=== PATIENT | male | born 1980 | race Caucasian/White ===

== ENCOUNTER 2024-05-01 19:59 | Inpatient (IN) | payer OTHER, SELFPAY ==
[2024-05-01 16:32] VITALS: BP 136/88
[2024-05-01 17:08] LABS: % Basophils 0.3 % (0-2); % Eosinophils 1.1 % (0-6); % Immature Granulocytes 0.4 % (0-0.5); % Lymphocytes 25.2 % (20.5-51.1); % Monocytes 9.8 % (1.7-9.3); % Neutrophils 63.2 % (42.2-75.2); Absolute Eosinophils 0.1 10^3/uL (0-0.7); Absolute Lymphocytes 1.9 10^3/uL (1.2-3.4); Absolute Monocytes 0.7 10^3/uL (0.1-0.6); Absolute Neutrophils 4.7 10^3/uL (1.4-6.5); Hematocrit 41.6 % (39.0-52.0); Hemoglobin 14.6 g/dL (13.0-18.0); INR 1.07; Mean Corp Hgb Conc. 35.1 g/dL (33.0-37.0); Mean Corpuscular Hgb 32.7 pg (27.0-31.0); Mean Corpuscular Volume 93.1 fL (80.0-94.0); Mean Platelet Volume 9.9 fL (7.4-10.4); Nucleated Red Blood Cells % 0 % (-); PT 13.7 Sec (11.4-14.6); Platelet Count 217 10^3/uL (130-400); Red Blood Cell Count 4.47 10^6/uL (4.70-6.10); Red Cell Dist. Width 12.1 % (11.5-14.5); White Blood Cell Count 7.4 10^3/uL (4.8-10.8)
[2024-05-01 17:09] LABS: APTT 26.2 Sec (23.4-35.0)
[2024-05-01 17:27] LABS: ALT (SGPT) 19 U/L (0-50); AST (SGOT) 23 U/L (17-59); Albumin 4.3 g/dl (3.5-5.0); Alkaline Phosphatase 68 U/L (38-126); Blood Urea Nitrogen 16 mg/dl (9-20); Calcium 9.5 mg/dl (8.4-10.2); Carbon Dioxide 25 mmol/L (22-30); Chloride 105 mmol/L (98-107); Glucose 98 mg/dl (70-99); Potassium 4.4 mmol/L (3.5-5.1); Sodium 137 mmol/L (135-145); Total Bilirubin 0.8 mg/dl (0.2-1.3); eGFR > 60.00
--- NOTE | 2024-05-01 18:51 | ED.GENMED ---
History of Present Illness
General
Chief Complaint: Rectal Bleeding
Time Seen by Provider: 05/01/24 18:26
History of Present Illness
History of Present Illness:
43-year-old male with history of Crohn's disease presents to the emergency department for evaluation of rectal bleeding. He underwent a routine colonoscopy at [place] [facility] this morning, per procedure notes on retroflexion there was an iatrogenic mucosal
tear the distal rectum. This was observed and bleeding ceased prior to the end of the procedure. Shortly after returning home the patient began having blood in his underwear and multiple large-volume bloody bowel movements. He reports mild lower
abdominal discomfort but no severe pain. No fevers or chills. He is not on anticoagulants or antiplatelets
Past History
Past History
ED Past Medical History: Other (Colitis,Crohn's with abscess and fistula)
ED Past Surgical History: None; Negative Cardiac
Social History
Tobacco: Former smoker
Alcohol: Occasional
Drug: None
Personal:
Living: with family
Employment: Employed
Family History
Family History: Other
Review of Systems
Review of Systems
Allergies reviewed?: Yes
All Other Systems: ROS reviewed and negative except as documented in HPI and ROS
Phy Exam
Physical Exam
Physical Exam:
GEN: Well appearing, NAD, WDWN
HEENT: Oral mucosa moist, no scleral icterus
Cardiac: Regular rate
Lung: No respiratory distress, no tachypnea
Rectal: No gross blood present on rectal exam
MSK: No gross deformity or injuries
Skin: Good color, no pallor or jaundice, no rashes
Neuro: AO x3, moves all extremities freely
Psych: Calm, cooperative
Course
Orders/Labs/Results
Orders:
Orders
05/01/24 16:49
Complete Blood Count/With Diff Urgent
Comprehensive Metabolic Panel Urgent
PT/INR [Prothrombin Time] Urgent
PTT Urgent
05/01/24 19:32
Admit/Transfer Patient As Directed
Co-Sign Provider:
Level of Care: Inpatient admission
Assign to:: Telemetry
Physician / Group: [email or web address]
Diagnosis: Post colonoscopy rectal bleed
Reason for Telemetry: Other
Other Reason for Telemetry: Post colonoscopy rectal bleed
Date to Stop Telemetry: 05/03/24
Time to Stop Telemetry: 11:00
Reason for Hospitalization: Post colonoscopy rectal bleed
Expected length of stay greater than two midnights?: Yes
ELOS- Estimated Length of Stay in days: 2
I certify the patient meets the requirements for IP care: Yes
05/01/24 19:33
Code Status As Directed
Resuscitation Status: Full Code
05/01/24 19:41
Ondansetron Injectable [Zofran] 4 mg IV NOW STA
05/01/24 19:42
HYDROmorphone [Dilaudid] 0.5 mg IV NOW STA
05/01/24 20:44
0.9% Sodium Chloride 1000 ml [Nss] 1,000 ml IV 80 mls/hr
05/01/24 20:44
Activity As Directed
Activity Level: With Assistance
INT (Intravenous Needle Therapy) As Directed
Comment: Place 2 IV catheters of the largest bore possible until stable
Intake/ Output As Directed
Frequency: Per unit guidelines
Orthostatic Vital Signs As Directed
Orthostatic VS Frequency: Now
Comment: then every four hours for twenty-four hours
Pneumatic Compression Sleeves As Directed
Type: Knee high
Vital Signs As Directed
Frequency: Per unit guidelines
DX Deep Vein Thrombosis Video Routine
05/01/24 20:58
H&H Q8H
05/02/24 Breakfast
NPO
Allow oral meds: Yes
Allow clear liquids: Sips of Clears
NPO with Ice Chips: Yes
Basic Metabolic Panel IN AM
05/02/24 08:00
Pantoprazole [Protonix IV] 40 mg IV DAILY
05/03/24 11:00
DC Protocol for Telemetry ONCE
Abnormal Lab Results
05/01/24
16:49
RBC 4.47 L 10^6/uL
(4.70-6.10)
MCH 32.7 H pg
(27.0-31.0)
Absolute Monos (auto) 0.7 H 10^3/uL
(0.1-0.6)
Monocytes % 9.8 H %
(1.7-9.3)
05/01/24 16:49
05/01/24 16:49
Vital Signs
Initial and Last Documented VS:
Initial Vital Signs
Temp Pulse Resp BP Pulse Ox
98.9 F 63 18 136/88 99
05/01/24 16:32 05/01/24 16:32 05/01/24 16:32 05/01/24 16:32 05/01/24 16:32
Last Documented Vital Signs
Temp Pulse Resp BP Pulse Ox
98.3 F 49 18 123/76 100
05/01/24 21:00 05/01/24 21:00 05/01/24 21:00 05/01/24 21:00 05/01/24 21:00
MDM/Problems Addressed
MDM/Problems Addressed:
After discussion with patient is clinically stable with reassuring hemoglobin, plan to admit for observation, further bleeding is identified may require GI intervention. GI on-call physician was made aware as well
*Critical Care Note
Total Time (30-74mins, 75-104mins- exclusive of procedures): Not Applicable
Update Note
Update Note:
Discussed the case with Dr. Miner at the [facility]. She advises overnight observation and hemoglobin trending as any further bleeding may warrant need for clipping of the mucosal injury. Her cell phone is [phone] and can be
reached for any further questions
ED Attending Note
-
Portions of this chart may have been created with voice recognition software.� Occasional wrong word or��sound alike� substitutions may have occurred due to the inherent limitations of voice recognition software.
Discharge Plan
Departure
Patient Disposition: Admit
Date of Disposition: 05/01/24
Time of Disposition: 18:58
Presentation/result/management discussed w/ accepting MD/DO: Hospitalist
Discharge Problem:
Rectal bleeding, Rectal injury
Interventions
Interventions:
*Risk Screen - Suicide Last Done: 05/01/24 19:22
*General Assessment Last Done: 05/01/24 19:22
*Neglect/Abuse Screening Last Done: 05/01/24 19:22
ED- Fall Risk Assessment Last Done: 05/01/24 19:22
*ED COVID-19 Vaccine History Last Done: 05/01/24 20:47
*Nursing Disposition Last Done: 05/01/24 20:47
SO-Tkpjrw-Xnvsfsvbqd Assessment Last Done: 05/01/24 19:22
ED- Cardiac Assessment Last Done: 05/01/24 19:22
ED- Pulmonary Assessment Last Done: 05/01/24 19:22
Discharge Date and Time
Discharge Date/Time: 05/01/24 20:47
[2024-05-01 19:11] VITALS: BP 133/94
[2024-05-01 19:22] VITALS: BMI 24.8
--- NOTE | 2024-05-01 19:29 | HPS.HSE ---
Family Physician
-
Family Physician: NOT KNOW UNKNOWN - PT DOES
Chief Complaint
-
rectal bleed
History of Present Illness
HPI
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
- s/p routine C scope complicated by iatrogenic mucosal tear the distal rectum at [place] this morning pr procedure note
- It was observed and bleeding ceased prior to the end of the procedure then DC'd home
- At home noted blood in his underwear and multiple large-volume bloody bowel movements.
- mild lower abdominal discomfort but no severe pain
- No fevers or chills. Nl WCC
- Not on anticoagulants or antiplatelets
- Hgb 14.6
- Hemodynamically stable
At ER
Rectal by ER AP : No gross blood present on rectal exam
Medical History
Past Medical History
Past Medical History: Reports Other (HX Crohns dx complicated by abscess, fisulous dz, colitis and Crohn's proctosigmoiditis.,)
Past Surgical History: Reports None
Social History
Tobacco: Non-smoker
Alcohol: None
Drug: None
Family History
Family History: Not pertinent
Allergies / Home Medications
Allergies reflects when Allergies were last updated in [employer].
Home Medications with original date entered in [employer]
Allergy/Medication List:
Allergies
Allergy/AdvReac Type Severity Reaction Status Date / Time
No Known Allergies Allergy Verified 05/01/24 16:33
Home Medications
ascorbic acid (vitamin C) 500 mg tablet (Vitamin C) 500 mg PO DAILY 05/01/24
cholecalciferol (vitamin D3) 25 mcg (1,000 unit) tablet 25 mcg PO DAILY 05/01/24
infliximab 100 mg intravenous solution (Remicade) 0 mg IV Q6W 05/01/24
tadalafil 20 mg tablet 20 mg PO DAILYPRN PRN ed 05/01/24
zinc sulfate 50 mg zinc (220 mg) tablet 50 mg PO DAILY 05/01/24
Review of Systems
-
Constitutional: Reports No Symptoms
EENT: Reports No Symptoms
Respiratory: Reports No Symptoms
Cardiac: Reports No Symptoms
Abdomen/GI: Reports See HPI and Bloody Stools
: Reports No Symptoms
Musculoskeletal: Reports No Symptoms
Skin: Reports No Symptoms
Neurological: Reports No Symptoms
Endocrine: Reports No Symptoms
Hematologic/Lymphatic: Reports No Symptoms
Psych: Reports No Symptoms
Physical Exam
Vital Signs
Vital Signs
Temp Pulse Resp BP Pulse Ox
98.9 F 63 18 133/94 100
05/01/24 16:32 05/01/24 16:32 05/01/24 16:32 05/01/24 19:11 05/01/24 19:15
Physical Exam
General: Well Developed, Well Nourished, No Apparent Distress, Comfortable and Conversant; No Appears in Distress
HEENT: NormoCephalic, Moist mucous membranes and Atraumatic
Respiratory: Clear
Cardiac: S1/S2 and Regular Rhythm; No Murmur or Rub
GI: Soft, Non Tender, Non Distended and Normal Bowel Sounds; No Organomegaly
Rectal: Deferred by Provider
Musculoskeletal: No Clubbing, No Cyanosis and No Edema
Skin: No Rash
Neuro: AO x 3 and Nonfocal/grossly intact
Psych: Calm and Intact Judgment/Insight
Laboratory Results
-
05/01/24 16:49
05/01/24 16:49
Laboratory Results
PT 13.7 Sec (11.4-14.6) 05/01/24 16:49
INR 1.07 05/01/24 16:49
APTT 26.2 Sec (23.4-35.0) 05/01/24 16:49
Total Bilirubin 0.8 mg/dl (0.2-1.3) 05/01/24 16:49
AST 23 U/L (17-59) 05/01/24 16:49
ALT 19 U/L (0-50) 05/01/24 16:49
Alkaline Phosphatase 68 U/L (38-126) 05/01/24 16:49
Data Reviewed
-
Lab Data: Labs Reviewed by me
Old Records: Reviewed
Impression/Plan
-
Reviewed VS: stable , unremarkable
Vital Signs
Temp Pulse Resp BP Pulse Ox
98.9 F 63 18 133/94 100
05/01/24 16:32 05/01/24 16:32 05/01/24 16:32 05/01/24 19:11 05/01/24 19:15
Data
nl WCC
Hgb 14.6
Unremarkable CMP
Last hospitalist admission: 01/25/20 - 01/29/20
P DXS
1. Rectal fistula.
2. Procto-sigmoid colitis.
ASSESSMENT & PLAN
Post colonoscopy rectal bleed
05/01/24 S/p routine C scope complicated by iatrogenic mucosal tear the distal rectum at [place] this morning per procedure note
HX Crohn dz complicated by abscess, fistulous dz, colitis and Crohn's proctosigmoiditis., currently on Infliximab Q6W
- not on AC or APL
- Afebrile and Nl WCC
- Hemodynamically stable
- T & S blood consented by me and scanned ( Of note; Prefer Blood from and daughter if Blood Tx is warranted)
- Clear and ADAT
- Trend H/H q8h
- IVF
- Avoid NSAIDs and ASA for now
- GI consult
HX negative T. test, negative hepatitis panel and hepatitis B virus.
DVT Px: SCD
Code: Full
IP TLM
[2024-05-01] MEDS: DILAUDID 0.5 MG IV ×2 (19:43→23:02)
[2024-05-01] MEDS: ZOFRAN 4 MG IV (19:43)
[2024-05-01 21:00] VITALS: BP 123/76; BMI 24.3
[2024-05-01 21:15] LABS: Hematocrit 36.9 % (39.0-52.0); Hemoglobin 13.2 g/dL (13.0-18.0)
[2024-05-01] MEDS: NSS 1000 IV (21:55)
--- NOTE | 2024-05-01 22:38 | PTCARENOTE ---
Patient arrived via stretcher around 2100 with diagnosis of post colonoscopy rectal bleed. Patient AAOX3. Pleasant and cooperative with care. Patient continues to have moderate amount of rectal bleeding. H&H stable. Patient denies dizziness.
Oriented to unit. Call gray within reach.
[2024-05-01 23:15] VITALS: BP 105/72; BP 122/79; BP 131/83; PULSE 54; PULSE 57; PULSE 64
[2024-05-02 03:15] VITALS: BP 108/66; BP 111/70; BP 112/71; PULSE 46; PULSE 50; PULSE 52
[2024-05-02] MEDS: DILAUDID 0.5 MG IV ×3 (03:15→10:39)
[2024-05-02 07:15] VITALS: BP 107/62
[2024-05-02] MEDS: PROTONIX IV 40 MG IV (07:33)
[2024-05-02] MEDS: NSS (PRESERVATIVE FREE) 10 ML IV (07:33)
[2024-05-02 08:26] LABS: Blood Urea Nitrogen 17 mg/dl (9-20); Calcium 8.8 mg/dl (8.4-10.2); Carbon Dioxide 27 mmol/L (22-30); Chloride 106 mmol/L (98-107); Estimated Creatinine Clearance 116 ml/min; Glucose 85 mg/dl (70-99); Potassium 4.1 mmol/L (3.5-5.1); Sodium 137 mmol/L (135-145); eGFR > 60.00
[2024-05-02 08:28] LABS: Hematocrit 35.1 % (39.0-52.0); Hemoglobin 12.3 g/dL (13.0-18.0)
--- NOTE | 2024-05-02 10:51 | CON.GI ---
Addendum entered and electronically signed by Jm Acuna MD 05/02/24 17:00:
I saw and examined the patient.
The [facility] CONSULTANT or PA's note was reviewed and I agree with the note.
Comment: 43yo male with hx Crohn's disease who had colonoscopy for surveillance yesterday at [facility]. Reported rectal tear in area of scar tissue from prior abscess that bled but was self limited. Reported bleeding after he went home. Since d/c
bleeding subsided and Hgb dropped slightly from 14 to 12.
REC:
Bleeding has resolved
OK for d/c home
Original Note:
Consultation
-
Date/Time Consultation Requested: 05/02/24729
Date/Time Consultation Performed: 05/02/24 1050
Requesting Provider: Gurpreet Fagan MD
Performing Provider: BLANCA Finn, Jm Acuna MD
Reason for Consultation: rectal bleeding
Medical History
Chief Complaint / HPI
Chief Complaint: rectal bleeding
History of Present Illness:
Pt is a 43yo with hx crohn's disease with prior failed mesalamine and Humira to 2014. He was off treatment then seen in 2019 with concern for abscess/fistula and moderate to severe colitis. He is currently on Infliximab Q6 week and went for
colonoscopy 05/01 at [facility] with [address]. Low noted rectal bleeding on return home. Per admission note and pt recall pt noted with iatrogenic mucosal tear in distal rectum in area of scar tissue from prior abscess. Pt state while at home he was noted
with multiple episodes of worsening bleeding and sense of blood dripping from rectum with blood on underwear and eventual presented for eval. He continued with bleeding til about 3 am then improved since that time. He also had some bloating feeling
in abdomen. Hbg 14.6 on admission with drop to 12.3 after admission. Pt reports stable crohn's symptoms since starting Infliximab in 2019.
Pt reports typical bowel pattern in stool in AM initially formed then loose. He denies any bleeding prior to procedure. He denies dysphagia, GERD, nausea, vomiting, or black stools.
Past Medical History
Past Medical History: Other (crohns disease proctosigmoiditis with hx complicated abscess/fistula 2019)
Social History
Tobacco: Smoker (occasional )
Alcohol: Occasional
Drug: Marijuana (occasional pill at night )
Personal:
Living: With Family
Employment: Employed
Family History
Family History: Other (father with IBS)
Allergies / Home Medications
Allergy/AdvReac Type Severity Reaction Status Date / Time
No Known Allergies Allergy Verified 05/01/24 16:33
�Medication �Instructions �Recorded
ascorbic acid (vitamin C) 500 mg 500 mg PO DAILY Supplement 05/01/24
tablet (Vitamin C)
cholecalciferol (vitamin D3) 25 25 mcg PO DAILY Supplement 05/01/24
mcg (1,000 unit) tablet
infliximab 100 mg intravenous 0 mg IV Q6W Autoimmune Disorder 05/01/24
solution (Remicade)
tadalafil 20 mg tablet 20 mg PO DAILYPRN PRN ed 05/01/24
zinc sulfate 50 mg zinc (220 mg) 50 mg PO DAILY Supplement 05/01/24
tablet
Review of Systems
-
History Source: Patient
Constitutional: Reports No Symptoms
EENT: Reports No Symptoms
Respiratory: Reports No Symptoms
Cardiac: Reports No Symptoms
Abdomen/GI: Reports Abdominal Pain and Bloody Stools
: Reports No Symptoms
Musculoskeletal: Reports No Symptoms
Skin: Reports No Symptoms
Neurological: Reports No Symptoms
Endocrine: Reports No Symptoms
Hematologic/Lymphatic: Reports Bleeding
Vital Signs
Temp Pulse Resp BP Pulse Ox
98.0 F 46 15 107/62 99
05/02/24 07:15 05/02/24 07:15 05/02/24 07:15 05/02/24 07:15 05/02/24 07:15
Physical Exam
Exam
General: Well Developed, Well Nourished and No Apparent Distress
HEENT: Normocephalic and Anicteric
Respiratory: Clear
Cardiac: Regular Rhythm
GI: Soft, Non Tender and Non Distended
Rectal: Deferred by Provider
Musculoskeletal: No Clubbing and No Cyanosis
Skin: Warm and Dry
Neuro: Awake, Alert and AO x 3
Psych: Calm
Results
WBC 7.4 10^3/uL (4.8-10.8) 05/01/24 16:49
Hgb 12.3 g/dL (13.0-18.0) L 05/02/24 07:48
Hct 35.1 % (39.0-52.0) L 05/02/24 07:48
MCV 93.1 fL (80.0-94.0) 05/01/24 16:49
Plt Count 217 10^3/uL (130-400) 05/01/24 16:49
Absolute Neuts (auto) 4.7 10^3/uL (1.4-6.5) 05/01/24 16:49
PT 13.7 Sec (11.4-14.6) 05/01/24 16:49
INR 1.07 05/01/24 16:49
APTT 26.2 Sec (23.4-35.0) 05/01/24 16:49
Sodium 137 mmol/L (135-145) 05/02/24 07:12
Potassium 4.1 mmol/L (3.5-5.1) 05/02/24 07:12
Chloride 106 mmol/L (98-107) 05/02/24 07:12
Carbon Dioxide 27 mmol/L (22-30) 05/02/24 07:12
BUN 17 mg/dl (9-20) 05/02/24 07:12
Creatinine 0.9 mg/dL (0.7-1.3) 05/02/24 07:12
Calcium 8.8 mg/dl (8.4-10.2) 05/02/24 07:12
Total Bilirubin 0.8 mg/dl (0.2-1.3) 05/01/24 16:49
AST 23 U/L (17-59) 05/01/24 16:49
ALT 19 U/L (0-50) 05/01/24 16:49
Alkaline Phosphatase 68 U/L (38-126) 05/01/24 16:49
Diagnostic Image Results:
Prior GI Procedures:
Colonoscopy: 05/01/24 Dr. Low Per admission note and pt recall pt noted with iatrogenic mucosal tear in distal rectum in area of scar tissue from prior abscess.
Assessment / Plan
-
Pt is a 43yo with hx crohn's disease with prior failed mesalamine and Humira to 2014. He was off treatment then seen in 2019 with concern for abscess/fistula and moderate to severe colitis. He is currently on Infliximab Q6 week and went for
colonoscopy 05/01 at [facility] with Dr. Low noted rectal bleeding on return home. Per admission note and pt recall pt noted with iatrogenic mucosal tear in distal rectum in area of scar tissue from prior abscess. Pt state while at home he was noted
with multiple episodes of worsening bleeding and sense of blood dripping from rectum with blood on underwear and eventual presented for eval. He continued with bleeding til about 3 am then improved since that time. He also had some bloating feeling
in abdomen. Hbg 14.6 on admission with drop to 12.3 after admission. Pt reports stable crohn's symptoms since starting Infliximab in 2019.
-rectal bleeding
-s/p colonoscopy 05/01 at [facility] with rectal mucosal tear
-hx crohns with fistulizing disease and complicated abscess/fistula/proctosigmoiditis in 2020
PLAN:
etiology of bleeding likely related to mucosal tear with procedure
bleeding now improved
trend stool pattern and hbg
add Miralax BID to keep stools soft
reviewed option of observation vs flex -- pt wishes to hold on scope for now with improved bleeding
increased to clear diet
Pt aware on discharge bleeding can recur up to 2 week to return on discharge if any recurrent increased bleeding
-
-
Thank you for consultation and allowing me to participate in the patient's care. Please call the production officer GI physician during the after hours with any questions or concerns.
[2024-05-02 11:10] VITALS: BP 120/73
[2024-05-02 12:18] LABS: Glucose - Point of Care 105 mg/dl (70-99)
[2024-05-02] MEDS: MIRALAX 17 GRAMS PO (12:34)
--- NOTE | 2024-05-02 14:16 | CM ---
Patient seen at bedside. Patient states that he lives with family, in a 3 story home. Patient has no DME at home. Patient PCP is [facility] and he sees a CARLOS Diamond there. Patient uses the [facility] in [place] for pharmacy needs.
Patient stated that he does not anticipate any discharge planning needs. CM will continue to follow for discharge planning needs.
Plan; home with no needs
--- NOTE | 2024-05-02 14:39 | W.PN.HOSP.TC ---
Today's Communication/Plan
-
repeat H&H, if Hgb stable - patient would like to go home
Assessment / Plan
Assessment / Plan
43yo M with Crohns disease came with rectal bkleeding after planned colonoscopy. Review of procedure note showed that he had mucosal tear duering this procedure. Hgb remained stable, bleeding subsided, but might be still intermittent over the next
two weeks. As per patient discussion with GI - decided on observation and was instructed to watch for worsening bleeding or symptoms of anemia.
A/P:
#Lower GIB 2/2 recent colonoscopy with mucosal tear
#Crohns disease
Seraial HGB stable
bleeding subsided
GI followed
DVT ppx SCDs
Full code
I have spent at lest 39min reviewign chart, test results, communication with consultants and direct patient care
Anticipated Discharge: Within 24 hours
Subjective/Interval History
-
Date of Service: May 02, 2024
Objective Data
-
Labs:
Laboratory Results
05/02/24 05/02/24 05/02/24
07:12 07:48 15:45
Hgb 12.3 L Pending
Hct 35.1 L Pending
Sodium 137
Potassium 4.1
Chloride 106
Carbon Dioxide 27
BUN 17
Creatinine 0.9
Glucose 85
Calcium 8.8
05/02/24
23:45
Hgb Pending
Hct Pending
Sodium
Potassium
Chloride
Carbon Dioxide
BUN
Creatinine
Glucose
Calcium
Vital Signs:
Vital Signs
Temp Pulse Resp BP Pulse Ox
98.2 F 45 20 120/73 98
05/02/24 11:10 05/02/24 11:10 05/02/24 11:10 05/02/24 11:10 05/02/24 11:10
I&O
05/01/24 05/02/24 05/03/24
06:59 06:59 06:59
Intake Total 120 / 120
Balance 120 / 120
Review of Systems
-
History Source: Patient
All other systems: Reviewed and negative
Physical Exam
-
General: Well Developed and Well Nourished
HEENT: Normocephalic
Respiratory: Clear to Auscultation
Cardiac: Regular Rhythm
GI: Soft, Nontender and Nondistended
Genito-urinary: No Costovertebral Tender
Musculoskeletal: No Clubbing, No Cyanosis and No Edema
Skin: Warm
Neuro: Awake, Alert, Oriented and AO x 3
Psych: Calm
[2024-05-02 15:33] VITALS: BP 108/57
[2024-05-02 15:39] LABS: Hematocrit 35.3 % (39.0-52.0); Hemoglobin 12.3 g/dL (13.0-18.0)
--- NOTE | 2024-05-02 15:45 | W.DCSUMMARY ---
Discharge Summary
Discharge Data
Date of Admission: 05/01/24
Date of Discharge: 05/02/24
-
Pending Results: No
Hospital Course
43yo M with Crohns disease came with rectal bkleeding after planned colonoscopy. Review of procedure note showed that he had mucosal tear duering this procedure. Hgb remained stable, bleeding subsided, but might be still intermittent over the next
two weeks. As per patient discussion with GI - decided on observation and was instructed to watch for worsening bleeding or symptoms of anemia. Serial Hgb remained stable on the day of d/c without drop in 6h. Patient will monitor for his condition
at home amnd will come to ED if any increased bleeding or new symptoms of anemia - was explained in details and he verbalized understanding.
Medically stable for d/c without tachycardia or hypotension.
I have spent at least 39min preparing d/c
A/P:
#Lower GIB 2/2 recent colonoscopy with mucosal tear
#Crohns disease
Discharge Plan
-
Patient Disposition: Home (Routine Discharge)
Discharge Diagnosis/Procedures: lower GIB
Diet: Low Residue
Activity: No restrictions
Driving Restrictions: As prior to admission
Referrals:
Debbie Diamond PA [Family Provider] -
Prescriptions:
Continued
zinc sulfate 50 mg zinc (220 mg) Tablet
50 mg PO DAILY
ascorbic acid (vitamin C) [Vitamin C] 500 mg Tablet
500 mg PO DAILY
infliximab [Remicade] 100 mg Recon Soln
0 mg IV Q6W
tadalafil 20 mg tablet
20 mg PO DAILYPRN PRN (Reason: ed)
cholecalciferol (vitamin D3) 25 mcg (1,000 unit) Tablet
25 mcg PO DAILY
Discharge Orders:
Discharge Patient (As Directed); Ordered 05/02/24
Ordered By: Gurpreet Fagan
Discharge Date and Time
Print Language: CHILEAN
== END 2024-05-02 16:31 | disposition home or self-care (01) | DRG 378 ==
LOC: 4 WEST ACU 19:59
PROVIDERS: ADMITTING PHYSICIAN Internal Medicine; ATTENDING PHYSICIAN Internal Medicine; CONSULT PHYSICIAN Specialist; EMERGENCY PHYSICIAN Emergency Medicine; FAMILY PHYSICIAN Physician Assistant Medical
DX: K62.5 Hemorrhage of anus and rectum (principal); K50.90 Crohn's disease, unspecified, without complications
CPT/HCPCS: 80048; 80053; 82962; 85014; 85018; 85025; 85610; 85730; 99284